=== PATIENT | male | born 1975 | race Caucasian/White ===

== ENCOUNTER 2018-01-07 06:15 | Emergency (ER) | payer MEDICAID ==
[~2018-01-07] VITALS: Ht 185.4 cm; Wt 75.0 kg
[~2018-01-07 06:15] MED LIST: CYCL-1 PO; DICY10CA88 PO; DOCU-28 PO; OMEP-84 PO; PARO10TA85 PO
[2018-01-07 06:16] VITALS: BP 122/65
[2018-01-07] MEDS ORDERED: ibuprofen tablet 400 MG TABLET PO ONE (06:50)
== END 2018-01-07 08:41 | disposition home or self-care (01) ==
LOC: ER 06:15
DX: S80.01XA Contusion of right knee, initial encounter (principal); G89.29 Other chronic pain; F17.200 Nicotine dependence, unspecified, uncomplicated; F15.10 Other stimulant abuse, uncomplicated; Z56.0 Unemployment, unspecified; Z88.5 Allergy status to narcotic agent; V29.9XXA Motorcycle rider (driver) (passenger) injured in unspecified traffic accident, initial encounter; Y93.89 Activity, other specified; Y92.410 Unspecified street and highway as the place of occurrence of the external cause; Y99.8 Other external cause status
CPT/HCPCS: 73560; 99284

== ENCOUNTER 2020-02-26 10:28 | Emergency (ER) | payer MEDICAID ==
[~2020-02-26] VITALS: Ht 182.9 cm; Wt 72.7 kg
[2020-02-26] MEDS ORDERED: LIDOcaine 1% W/epiNEPHrine 1:200,000 10ml vial IJ ONE (10:40)
[2020-02-26] MEDS ORDERED: TETanus/Pertussis (Acell)/Diphther VAC/PF (Tdap-Adult) 0.5ml syringe IMVAC ONE (10:40)
[2020-02-26] MEDS ORDERED: acetaminophen 325mg tablet PO ONE (10:55)
[2020-02-26 11:24] VITALS: BP 100/63
== END 2020-02-26 12:47 | disposition home or self-care (01) ==
LOC: ER 10:29
DX: S06.0X0A Concussion without loss of consciousness, initial encounter (principal); S01.01XA Laceration without foreign body of scalp, initial encounter; S00.83XA Contusion of other part of head, initial encounter; G89.29 Other chronic pain; F15.90 Other stimulant use, unspecified, uncomplicated; Z56.0 Unemployment, unspecified; Z88.6 Allergy status to analgesic agent; Z79.899 Other long term (current) drug therapy; Y04.2XXA Assault by strike against or bumped into by another person, initial encounter; Y93.84 Activity, sleeping; Y92.89 Other specified places as the place of occurrence of the external cause; Y99.8 Other external cause status
CPT/HCPCS: 12002; 70450; 70486; 99285

== ENCOUNTER 2020-06-13 23:24 | Emergency (ER) | payer MEDICAID ==
[~2020-06-13] VITALS: Ht 182.9 cm; Wt 75.0 kg
[2020-06-13 23:26] VITALS: BP 133/86
[2020-06-14] MEDS ORDERED: CEPH-585 PO (00:24)
[2020-06-14] MEDS ORDERED: SULF1TAB49 PO (00:24)
[2020-06-14] MEDS ORDERED: cephalexin 500mg capsule PO ONE (00:25)
[2020-06-14] MEDS ORDERED: sulfamethoxazole/trimethoprim DS (800/160mg) tablet PO ONE (00:25)
== END 2020-06-14 00:47 | disposition home or self-care (01) ==
LOC: ER 23:25
DX: K13.0 Diseases of lips (principal); F17.200 Nicotine dependence, unspecified, uncomplicated; F15.90 Other stimulant use, unspecified, uncomplicated; Z56.0 Unemployment, unspecified; Z88.5 Allergy status to narcotic agent; Z88.8 Allergy status to other drugs, medicaments and biological substances; Z79.2 Long term (current) use of antibiotics; Z79.899 Other long term (current) drug therapy
CPT/HCPCS: 99283

== ENCOUNTER 2022-12-19 02:43 | Emergency (ER) | payer MEDICAID ==
[~2022-12-19 02:43] MED LIST changes: +PARO-153 PO; -PARO10TA85 PO
== END 2022-12-19 06:30 | disposition left against medical advice (07) ==
LOC: ER 02:43
DX: M25.569 Pain in unspecified knee (principal); Z53.21 Procedure and treatment not carried out due to patient leaving prior to being seen by health care provider

== ENCOUNTER 2023-01-15 03:58 | Emergency (ER) | payer MEDICAID ==
[~2023-01-15] VITALS: Ht 182.9 cm; Wt 74.6 kg
[2023-01-15 04:01] VITALS: BP 136/91; PULSE 106; TEMP 97.8; O2SAT 98
[2023-01-15] MEDS ORDERED: acetaminophen 325mg tablet PO ONE (04:25)
[2023-01-15] MEDS ORDERED: ibuprofen tablet 400 MG TABLET PO ONE (04:25)
[2023-01-15 04:44] VITALS: RESP 18
== END 2023-01-15 04:43 | disposition home or self-care (01) ==
LOC: ER 03:58
DX: M25.561 Pain in right knee (principal); G89.29 Other chronic pain; M54.9 Dorsalgia, unspecified; Z88.6 Allergy status to analgesic agent; Z88.8 Allergy status to other drugs, medicaments and biological substances; Z79.899 Other long term (current) drug therapy
CPT/HCPCS: 99283

== ENCOUNTER 2023-02-20 17:43 | Emergency (ER) | payer MEDICAID | END 2023-02-20 19:52 | disposition left against medical advice (07) | LOC: ER 17:44 | DX: R51.9 Headache, unspecified (principal); Z53.21 Procedure and treatment not carried out due to patient leaving prior to being seen by health care provider ==

== ENCOUNTER 2023-03-31 14:37 | Emergency (ER) | payer MEDICAID ==
[~2023-03-31] VITALS: Ht 182.9 cm; Wt 72.7 kg
[2023-03-31 18:52] LABS: BASOPHILS # (AUTO) 0.1 X10'3 (0-0.2); BASOPHILS % (AUTO) 0.8 % (0-1); EOSINOPHILS # (AUTO) 0.1 X10'3 (0-0.9); EOSINOPHILS % (AUTO) 0.6 % (0-6); HEMATOCRIT 42.2 % (42.0-52.0); HEMOGLOBIN 14.5 g/dl (14.0-17.9); LYMPHOCYTES % (AUTO) 14.5 % (21-51); MEAN CORPUSCULAR HEMOGLOBIN 30.7 PG (27.0-31.0); MEAN CORPUSCULAR HGB CONC 34.5 g/dL (33.0-36.5); MEAN PLATELET VOLUME 9.3 FL (7.4-10.4); MONOCYTES # (AUTO) 1.4 X10'3 (0-0.9); MONOCYTES % (AUTO) 10.7 % (2-12); NEUTROPHILS # (AUTO) 9.9 X10'3 (1.8-7.7); NEUTROPHILS % (AUTO) 73.4 % (42-75); PLATELET COUNT 262 X10'3 (140-440); RED BLOOD COUNT 4.74 X10'6 (4.70-6.10); RED CELL DISTRIBUTION WIDTH 14.5 % (11.5-14.5); WHITE BLOOD COUNT 13.5 X10'3 (4.5-11.0)
[2023-03-31 18:57] LABS: ALBUMIN 3.1 G/DL (3.4-5.0); AMYLASE 139 U/L (25-115); ANION GAP 13 (8-16); BLOOD UREA NITROGEN 60 MG/DL (7-18); BUN/CREATININE RATIO 40.5 (10.0-20.0); CALCIUM 9.3 MG/DL (8.5-10.1); CHLORIDE 94 MMOL/L (99-107); CREATININE 1.48 MG/DL (0.60-1.10); GLUCOSE 108 MG/DL (70-104); LIPASE 59 U/L (16-77); SODIUM 129 MMOL/L (135-145); eCRCL 65 ML/MIN; eGFR 51 ML/MIN
[2023-03-31 19:01] LABS: POTASSIUM 2.6 MMOL/L (3.5-5.1)
[2023-03-31] MEDS ORDERED: normal saline 1000ML IV soln IVB ONE (19:30)
[2023-03-31] MEDS ORDERED: ondansetron/PF 4mg/2ml inj IV ONE ×2 (20:05→22:45)
[2023-03-31] MEDS ORDERED: ringers solution, lactated 1000ml IV soln IV ONE (20:05)
[2023-03-31] MEDS ORDERED: HYDROmorphone 1 mg/ml syringe IV ONE (20:05)
[2023-03-31] MEDS ORDERED: Potassium Cl 40 MEQ in normal saline IV soln 270 ML IV ONE (20:20)
[2023-03-31 20:26] LABS: MAGNESIUM 2.3 MG/DL (1.5-2.4)
[2023-03-31] MEDS ORDERED: Potassium Cl 40 MEQ in sodium chloride 0.45% 500 ML IV ONE (20:40)
[2023-03-31 21:07] LABS: BILIRUBIN,URINE NEGATIVE (Neg); CLARITY,URINE CLEAR (Clear); COLOR,URINE YELLOW (Yellow); GLUCOSE, URINE NEGATIVE (Neg); KETONES,URINE NEGATIVE (Neg); LEUKOCYTE ESTERASE ,URINE NEGATIVE (Neg); OCCULT BLOOD,URINE TRACE-INTACT (Neg); PH,URINE 6.5 (4.8-8.0); PROTEIN,URINE NEGATIVE (Neg); UROBILINOGEN,URINE 0.2 E.U/dL (0.2-1.0)
[2023-03-31 21:13] LABS: NITRITES, URINE NEGATIVE (Neg); UA COLLECTION TYPE CLN CATCH MIDSTREAM
[2023-03-31 21:22] LABS: SQUAMOUS EPITHELIAL CELL,UR FEW /LPF (FEW); URINE AMPHETAMINE SCREEN POSITIVE (Neg); URINE BARBITUATE SCREEN NEGATIVE (Neg); URINE BENZODIAZEPINES SCREEN NEGATIVE (Neg); URINE CANNABINOID SCREEN NEGATIVE (Neg); URINE COCAINE SCREEN NEGATIVE (Neg); URINE METHADONE SCREEN NEGATIVE (Neg); URINE OPIATE SCREEN NEGATIVE (Neg); URINE PHENCYCLIDINE SCREEN NEGATIVE (Neg)
[2023-03-31 21:23] LABS: BACTERIA,URINE NONE SEEN /HPF (Neg); HYALINE CASTS 0-3 /LPF (NEGATIVE); RBC,URINE 0-2 /HPF (0-2); WBC,URINE 0-4 /HPF (0-4)
[2023-03-31] MEDS ORDERED: normal saline 1000ml 1,000 ML IV ONE (22:45)
[2023-03-31] MEDS ORDERED: potassium Cl 20 mEq SR tablet PO STA (22:45)
[2023-03-31] MEDS ORDERED: ONDA8TAB13 PO (22:51)
[2023-03-31] MEDS ORDERED: POTA-207 PO (22:51)
[2023-04-01 01:48] VITALS: BP 116/70; PULSE 109; RESP 16; TEMP 98.1; O2SAT 96
== END 2023-04-01 01:51 | disposition home or self-care (01) ==
LOC: ER 14:37
DX: R11.10 Vomiting, unspecified (principal); E87.6 Hypokalemia; E86.0 Dehydration; F15.90 Other stimulant use, unspecified, uncomplicated; Z88.6 Allergy status to analgesic agent; Z88.5 Allergy status to narcotic agent; Z79.899 Other long term (current) drug therapy
CPT/HCPCS: 36415; 74176; 80048; 80305; 81001; 82150; 83690; 83735; 85025; 96361; 96365; 96366; 96375; 96376; 99285; J1170; J2405; J3480; J3490; J7030; J7120

== ENCOUNTER 2023-11-08 02:04 | Emergency (ER) | payer MEDICAID ==
[~2023-11-08] VITALS: Ht 182.9 cm; Wt 170.0 kg
[~2023-11-08 02:04] MED LIST changes: +ONDA-245 PO
[2023-11-08 02:08] VITALS: TEMP 98.5
[2023-11-08 02:51] VITALS: BP 91/66; PULSE 89; RESP 16; O2SAT 99
[2023-11-08] MEDS ORDERED: LIDO700A32 TOP (04:04)
[2023-11-08] MEDS ORDERED: NAPR-56 PO (04:04)
[2023-11-08] MEDS: naproxen 500mg tablet PO ONE (04:09)
[2023-11-08] MEDS: LORazepam 1 MG tablet PO ONE (04:09)
== END 2023-11-08 04:31 | disposition home or self-care (01) ==
LOC: ER 02:05
DX: R51.9 Headache, unspecified (principal); G89.29 Other chronic pain; M54.9 Dorsalgia, unspecified; F41.9 Anxiety disorder, unspecified; Z56.0 Unemployment, unspecified; F15.90 Other stimulant use, unspecified, uncomplicated; Z88.8 Allergy status to other drugs, medicaments and biological substances; Z79.899 Other long term (current) drug therapy; Z79.1 Long term (current) use of non-steroidal anti-inflammatories (NSAID)
CPT/HCPCS: 99283

== ENCOUNTER 2023-12-17 00:12 | Emergency (ER) | payer MEDICAID ==
[~2023-12-17] VITALS: Ht 182.9 cm; Wt 73.3 kg
[~2023-12-17 00:12] MED LIST changes: +LIDO700A32 TOP
[2023-12-17 00:19] VITALS: BP 127/83; PULSE 122; RESP 18; TEMP 97.5; O2SAT 98
== END 2023-12-17 01:56 | disposition left against medical advice (07) ==
LOC: ER 00:14
DX: R21 Rash and other nonspecific skin eruption (principal); Z53.21 Procedure and treatment not carried out due to patient leaving prior to being seen by health care provider

== ENCOUNTER 2024-01-18 03:12 | Emergency (ER) | payer MEDICAID ==
[~2024-01-18] VITALS: Ht 182.9 cm; Wt 68.2 kg
[2024-01-18] MEDS ORDERED: AMOX-101 PO (04:07)
[2024-01-18] MEDS: amoxicillin 250mg capsule PO ONE (04:26)
[2024-01-18 04:40] VITALS: BP 138/88; PULSE 108; RESP 18; TEMP 97.6; O2SAT 95
== END 2024-01-18 04:30 | disposition home or self-care (01) ==
LOC: ER 03:13
DX: J20.9 Acute bronchitis, unspecified (principal); L03.116 Cellulitis of left lower limb; G89.29 Other chronic pain; M54.9 Dorsalgia, unspecified; F41.9 Anxiety disorder, unspecified; F17.210 Nicotine dependence, cigarettes, uncomplicated; F15.90 Other stimulant use, unspecified, uncomplicated; Z56.0 Unemployment, unspecified; Z88.5 Allergy status to narcotic agent; Z79.899 Other long term (current) drug therapy
CPT/HCPCS: 99283